=== PATIENT | male | born 1945 | race Caucasian/White ===

== ENCOUNTER 2017-10-30 17:11 | Inpatient (IN) | payer MEDICARE, BC ==
[~2017-10-30] VITALS: Ht 172.7 cm; Wt 98.0 kg
[~2017-10-30 17:11] MED LIST: ALBU18HF2 IH; ATOR10TA PO; BUDE10.22 INH; CLOP75TA35 PO; NITR0.4T51 SL
[2017-10-30 18:14] LABS: BASOPHILS # (AUTO) 0.1 X10'3 (0-0.2); BASOPHILS % (AUTO) 0.7 % (0-1); EOSINOPHILS # (AUTO) 0.3 X10'3 (0-0.9); EOSINOPHILS % (AUTO) 3.9 % (0-6); HEMATOCRIT 42.3 % (42.0-52.0); HEMOGLOBIN 14.5 g/dl (14.0-17.9); LYMPHOCYTES # (AUTO) 1.9 X10'3 (1.1-4.8); LYMPHOCYTES % (AUTO) 21.9 % (21-51); MEAN CORPUSCULAR HEMOGLOBIN 30.6 PG (27.0-31.0); MEAN CORPUSCULAR HGB CONC 34.3 % (33.0-36.5); MEAN CORPUSCULAR VOLUME 89.1 FL (78-98); MEAN PLATELET VOLUME 8.8 FL (7.4-10.4); MONOCYTES # (AUTO) 0.6 X10'3 (0-0.9); MONOCYTES % (AUTO) 7.1 % (2-12); NEUTROPHILS # (AUTO) 5.8 X10'3 (1.8-7.7); NEUTROPHILS % (AUTO) 66.4 % (42-75); PLATELET COUNT 238 X10'3 (140-440); RED BLOOD COUNT 4.74 X10'6 (4.70-6.10); WHITE BLOOD COUNT 8.7 X10'3 (4.5-11.0)
[2017-10-30 18:29] LABS: ALANINE AMINOTRANSFERASE 27 U/L (12-78); ALBUMIN 3.9 G/DL (3.4-5.0); ALBUMIN/GLOBULIN RATIO 1.3 (1.1-1.5); ALKALINE PHOSPHATASE 67 IU/L (46-116); ANION GAP 7 (8-16); ASPARTATE AMINO TRANSFERASE 14 U/L (10-37); BILIRUBIN,TOTAL 0.5 MG/DL (0.1-1.0); BLOOD UREA NITROGEN 17 MG/DL (7-18); BUN/CREATININE RATIO 15.5 (5.4-32.0); CALCIUM 8.7 MG/DL (8.5-10.1); CHLORIDE 105 MMOL/L (99-107); GLUCOSE 195 MG/DL (70-104); POTASSIUM 4.3 MMOL/L (3.5-5.1); SODIUM 139 MMOL/L (135-145); TOTAL CARBON DIOXIDE 26.9 MMOL/L (24-32); TOTAL PROTEIN 6.8 G/DL (6.4-8.2); eGFR 66 ML/MIN
[2017-10-30 21:18] LABS: UA COLLECTION TYPE VOIDED
[2017-10-30 21:19] LABS: CLARITY,URINE BLOODY (Clear); COLOR,URINE Red (Yellow)
[2017-10-30] MEDS ORDERED: LIDOcaine 2% 10ml TOPICAL JELLY (Urojet) MM ONE (21:50)
[2017-10-30 22:02] LABS: BACTERIA,URINE NONE SEEN /HPF (Neg); MUCUS STRANDS NONE SEEN /LPF (Neg); RBC,URINE TNTC /HPF (0-2); SQUAMOUS EPITHELIAL CELL,UR NONE SEEN /LPF (FEW); WBC,URINE 0-4 /HPF (0-4)
[2017-10-30] MEDS ORDERED: morphine 5 MG/ML injection IV ONE (22:15)
[2017-10-30] MEDS ORDERED: nitroGLYCERIN 0.4mg SUBLingual tab SL PRN (23:35)
[2017-10-30 23:48] LABS: TROPONIN I < 0.04 NG/ML (0.0-0.05)
[2017-10-30] MEDS ORDERED: normal saline 1000ML IV soln IVB ONE (23:50)
[2017-10-31] MEDS ORDERED: potassium Cl 40MEQ/NS 500ml 500 ML IV PRN ×2 (01:20)
[2017-10-31] MEDS ORDERED: albuterol 2.5 MG/3 ML nebule NEB PRN (01:20)
[2017-10-31] MEDS ORDERED: magnesium 4gm in 100ml NS 100 ML IV PRN (01:20)
[2017-10-31] MEDS ORDERED: HYDROmorphone 1 mg/ml syringe IV PRN ×2 (01:20)
[2017-10-31] MEDS ORDERED: acetaminophen 325mg tablet PO PRN (01:20)
[2017-10-31] MEDS ORDERED: ipratropium/albuterol 3ml nebule NEB PRN (01:20)
[2017-10-31] MEDS ORDERED: potassium Cl 20 mEq SR tablet PO PRN ×2 (01:20)
[2017-10-31] MEDS ORDERED: magnesium 2GM in 50ml NS 50 ML IV PRN (01:20)
[2017-10-31] MEDS ORDERED: magnesium Cl slow-release 64mg tablet PO PRN (01:20)
[2017-10-31] MEDS ORDERED: magnesium hydroxide 30ml (MOM) UD suspension PO PRN (01:20)
[2017-10-31] MEDS ORDERED: mag hydrox/Alum hydrox/simeth 30ml oral suspension PO PRN (01:20)
[2017-10-31] MEDS ORDERED: ondansetron/PF 4mg/2ml inj IV PRN (01:20)
[2017-10-31] MEDS: normal saline 1000ml 1,000 ML IV SCH ×3 (01:27→14:23)
[2017-10-31 04:10] VITALS: BP 120/77
[2017-10-31 08:00] VITALS: BP 117/69
[2017-10-31] MEDS: K and/or MAG REPLACEMENT MC SCH (08:00)
[2017-10-31] MEDS: atorvastatin 10mg tablet PO SCH (09:36)
[2017-10-31] MEDS: clopidogrel 75mg tablet PO SCH (09:36)
[2017-10-31 11:00] VITALS: BP 130/84
[2017-10-31 11:18] VITALS: BP 117/69
[2017-10-31 19:00] VITALS: BP 122/78
[2017-10-31 19:43] LABS: BASOPHILS % (AUTO) 0.4 % (0-1); EOSINOPHILS # (AUTO) 0.2 X10'3 (0-0.9); EOSINOPHILS % (AUTO) 3.1 % (0-6); HEMOGLOBIN 12.8 g/dl (14.0-17.9); LYMPHOCYTES # (AUTO) 1.2 X10'3 (1.1-4.8); LYMPHOCYTES % (AUTO) 15.5 % (21-51); MEAN CORPUSCULAR HEMOGLOBIN 30.9 PG (27.0-31.0); MEAN CORPUSCULAR HGB CONC 34.6 % (33.0-36.5); MEAN CORPUSCULAR VOLUME 89.3 FL (78-98); MEAN PLATELET VOLUME 8.8 FL (7.4-10.4); MONOCYTES # (AUTO) 0.7 X10'3 (0-0.9); MONOCYTES % (AUTO) 8.3 % (2-12); NEUTROPHILS # (AUTO) 5.8 X10'3 (1.8-7.7); NEUTROPHILS % (AUTO) 72.7 % (42-75); PLATELET COUNT 177 X10'3 (140-440); RED BLOOD COUNT 4.14 X10'6 (4.70-6.10); WHITE BLOOD COUNT 7.9 X10'3 (4.5-11.0)
[2017-10-31 19:57] LABS: ALBUMIN 3.4 G/DL (3.4-5.0); ANION GAP 6 (8-16); BLOOD UREA NITROGEN 12 MG/DL (7-18); CALCIUM 8.6 MG/DL (8.5-10.1); CHLORIDE 106 MMOL/L (99-107); GLUCOSE 109 MG/DL (70-104); POTASSIUM 3.7 MMOL/L (3.5-5.1); SODIUM 140 MMOL/L (135-145); TOTAL CARBON DIOXIDE 27.6 MMOL/L (24-32); eGFR > 90 ML/MIN
[2017-10-31] MEDS: LORazepam 1 MG tablet PO PRN (21:53)
[2017-10-31] MEDS: pantoprazole 40 MG vial IV SCH (23:30)
[2017-10-31] MEDS ORDERED: insulin Lispro (HumaLOG) vial - multi-dose SQ SCH (23:45)
[2017-10-31] MEDS ORDERED: dextrose ORAL solution 15 GM/59 ML bottle PO PRN ×2 (23:45)
[2017-10-31] MEDS ORDERED: insulin regular, human vial - multi-dose SQ SCH (23:45)
[2017-10-31] MEDS ORDERED: dextrose 50%-water 50ml dispensing syringe IV PRN ×2 (23:45)
[2017-10-31] MEDS ORDERED: glucagon, human recombinant 1mg kit SUBCUT PRN (23:45)
[2017-10-31] MEDS ORDERED: MESSAGE TO PHARMACY PO ONE (23:45)
[2017-11-01] VITALS: BP 119/76
[2017-11-01] MEDS: temazepam 15mg capsule PO PRN ×2 (00:54→21:52)
[2017-11-01] MEDS: normal saline 1000ml 1,000 ML IV SCH (01:03)
[2017-11-01 05:36] LABS: ALBUMIN 3.1 G/DL (3.4-5.0); ANION GAP 5 (8-16); BASOPHILS % (AUTO) 0.5 % (0-1); BLOOD UREA NITROGEN 12 MG/DL (7-18); BUN/CREATININE RATIO 13.3 (5.4-32.0); CALCIUM 8.3 MG/DL (8.5-10.1); CHLORIDE 108 MMOL/L (99-107); EOSINOPHILS # (AUTO) 0.3 X10'3 (0-0.9); EOSINOPHILS % (AUTO) 4.3 % (0-6); GLUCOSE 133 MG/DL (70-104); HEMATOCRIT 34.4 % (42.0-52.0); HEMOGLOBIN 11.9 g/dl (14.0-17.9); LYMPHOCYTES # (AUTO) 1.6 X10'3 (1.1-4.8); LYMPHOCYTES % (AUTO) 21.8 % (21-51); MAGNESIUM 1.8 MG/DL (1.5-2.4); MEAN CORPUSCULAR HGB CONC 34.7 % (33.0-36.5); MEAN CORPUSCULAR VOLUME 89.2 FL (78-98); MEAN PLATELET VOLUME 8.8 FL (7.4-10.4); MONOCYTES # (AUTO) 0.9 X10'3 (0-0.9); NEUTROPHILS # (AUTO) 4.4 X10'3 (1.8-7.7); NEUTROPHILS % (AUTO) 61.4 % (42-75); PLATELET COUNT 165 X10'3 (140-440); POTASSIUM 3.7 MMOL/L (3.5-5.1); RED BLOOD COUNT 3.85 X10'6 (4.70-6.10); RED CELL DISTRIBUTION WIDTH 12.9 % (11.5-14.5); SODIUM 141 MMOL/L (135-145); WHITE BLOOD COUNT 7.2 X10'3 (4.5-11.0); eGFR 83 ML/MIN
[2017-11-01 07:33] VITALS: BP 122/71
[2017-11-01] MEDS: K and/or MAG REPLACEMENT MC SCH (07:47)
[2017-11-01] MEDS: clopidogrel 75mg tablet PO SCH (08:18)
[2017-11-01] MEDS: atorvastatin 10mg tablet PO SCH (08:18)
[2017-11-01] MEDS: pantoprazole 40 MG vial IV SCH (08:31)
[2017-11-01 10:45] VITALS: BP 124/68
[2017-11-01] MEDS: LORazepam 1 MG tablet PO PRN (10:51)
[2017-11-01] MEDS ORDERED: morphine 2 MG/ML inj. syringe IV PRN (11:45)
[2017-11-01] MEDS: morphine 2 MG/ML inj. syringe IV PRN ×2 (12:04→20:33)
[2017-11-01] MEDS ORDERED: morphine 2 MG/ML inj. syringe IV ONE (12:25)
[2017-11-01 18:30] VITALS: BP 128/88
[2017-11-01] MEDS: insulin glargine (Lantus) pen - multi-dose SQ SCH (21:00)
[2017-11-02] VITALS: BP 124/72
[2017-11-02 06:07] LABS: BASOPHILS % (AUTO) 0.5 % (0-1); EOSINOPHILS # (AUTO) 0.5 X10'3 (0-0.9); EOSINOPHILS % (AUTO) 6.8 % (0-6); HEMATOCRIT 34.2 % (42.0-52.0); HEMOGLOBIN 11.9 g/dl (14.0-17.9); LYMPHOCYTES # (AUTO) 1.6 X10'3 (1.1-4.8); LYMPHOCYTES % (AUTO) 21.1 % (21-51); MEAN CORPUSCULAR HGB CONC 34.8 % (33.0-36.5); MEAN PLATELET VOLUME 8.8 FL (7.4-10.4); MONOCYTES # (AUTO) 0.8 X10'3 (0-0.9); MONOCYTES % (AUTO) 10.5 % (2-12); NEUTROPHILS # (AUTO) 4.6 X10'3 (1.8-7.7); NEUTROPHILS % (AUTO) 61.1 % (42-75); PLATELET COUNT 177 X10'3 (140-440); RED BLOOD COUNT 3.84 X10'6 (4.70-6.10); RED CELL DISTRIBUTION WIDTH 12.8 % (11.5-14.5); WHITE BLOOD COUNT 7.5 X10'3 (4.5-11.0)
[2017-11-02 06:29] LABS: ANION GAP 7 (8-16); BLOOD UREA NITROGEN 12 MG/DL (7-18); CALCIUM 8.5 MG/DL (8.5-10.1); CHLORIDE 107 MMOL/L (99-107); GLUCOSE 170 MG/DL (70-104); MAGNESIUM 1.9 MG/DL (1.5-2.4); POTASSIUM 3.8 MMOL/L (3.5-5.1); SODIUM 142 MMOL/L (135-145); TOTAL CARBON DIOXIDE 28.3 MMOL/L (24-32); eGFR > 90 ML/MIN
[2017-11-02 06:55] VITALS: BP 146/69
[2017-11-02] MEDS: K and/or MAG REPLACEMENT MC SCH (07:51)
[2017-11-02] MEDS: pantoprazole 40mg Tablet.DR PO SCH (09:05)
[2017-11-02] MEDS: atorvastatin 10mg tablet PO SCH (09:05)
[2017-11-02 10:45] VITALS: BP 103/69
[2017-11-02] MEDS: clopidogrel 75mg tablet PO SCH (10:56)
[2017-11-02 18:30] VITALS: BP 129/73
[2017-11-02] MEDS: insulin glargine (Lantus) pen - multi-dose SQ SCH (21:00)
[2017-11-02] MEDS: temazepam 15mg capsule PO PRN (21:25)
[2017-11-03] VITALS: BP 130/78
[2017-11-03 05:31] LABS: ALBUMIN 3.1 G/DL (3.4-5.0); ANION GAP 7 (8-16); BLOOD UREA NITROGEN 14 MG/DL (7-18); BUN/CREATININE RATIO 17.5 (5.4-32.0); CALCIUM 8.8 MG/DL (8.5-10.1); CHLORIDE 107 MMOL/L (99-107); GLUCOSE 142 MG/DL (70-104); MAGNESIUM 1.8 MG/DL (1.5-2.4); POTASSIUM 3.8 MMOL/L (3.5-5.1); SODIUM 142 MMOL/L (135-145); TOTAL CARBON DIOXIDE 28.1 MMOL/L (24-32); eGFR > 90 ML/MIN
[2017-11-03 05:33] LABS: BASOPHILS % (AUTO) 0.3 % (0-1); EOSINOPHILS # (AUTO) 0.6 X10'3 (0-0.9); EOSINOPHILS % (AUTO) 6.2 % (0-6); HEMATOCRIT 33.7 % (42.0-52.0); HEMOGLOBIN 11.9 g/dl (14.0-17.9); LYMPHOCYTES # (AUTO) 1.9 X10'3 (1.1-4.8); MEAN CORPUSCULAR HEMOGLOBIN 31.3 PG (27.0-31.0); MEAN CORPUSCULAR HGB CONC 35.2 % (33.0-36.5); MEAN CORPUSCULAR VOLUME 88.7 FL (78-98); MEAN PLATELET VOLUME 8.8 FL (7.4-10.4); MONOCYTES # (AUTO) 0.8 X10'3 (0-0.9); MONOCYTES % (AUTO) 9.2 % (2-12); NEUTROPHILS # (AUTO) 5.7 X10'3 (1.8-7.7); NEUTROPHILS % (AUTO) 63.3 % (42-75); PLATELET COUNT 199 X10'3 (140-440); RED CELL DISTRIBUTION WIDTH 13.1 % (11.5-14.5); WHITE BLOOD COUNT 8.9 X10'3 (4.5-11.0)
[2017-11-03 07:26] VITALS: BP 98/69
[2017-11-03] MEDS: K and/or MAG REPLACEMENT MC SCH (07:44)
[2017-11-03] MEDS: atorvastatin 10mg tablet PO SCH (08:50)
[2017-11-03] MEDS: clopidogrel 75mg tablet PO SCH (08:50)
[2017-11-03] MEDS: LORazepam 1 MG tablet PO PRN (08:50)
[2017-11-03] MEDS: pantoprazole 40mg Tablet.DR PO SCH (08:51)
[2017-11-03 11:47] VITALS: BP 112/63
[2017-11-03] MEDS ORDERED: METF500T7 PO (12:24)
[2017-11-04 05:31] LABS: % FREE PSA 26.7 % (.); PSA, FREE 0.16 ng/mL
== END 2017-11-03 14:10 | disposition home or self-care (01) | DRG 696 ==
LOC: ER 17:12 → ED HOLD 10-31 01:17 → SUR 3N 10-31 04:05
PROVIDERS: ADMIT Internal Medicine; ATTEND Family Medicine
PROC: 0TCB7ZZ Extirpation of Matter from Bladder, Via Natural or Artificial Opening (ICD-10-PCS; principal; 2017-10-31)
PROC: 3E1K78Z Irrigation of Genitourinary Tract using Irrigating Substance, Via Natural or Artificial Opening (ICD-10-PCS; 2017-10-31)
DX: R31.0 Gross hematuria (principal); E11.65 Type 2 diabetes mellitus with hyperglycemia; C61 Malignant neoplasm of prostate; J43.9 Emphysema, unspecified; I25.10 Atherosclerotic heart disease of native coronary artery without angina pectoris; I10 Essential (primary) hypertension; K57.90 Diverticulosis of intestine, part unspecified, without perforation or abscess without bleeding; E78.5 Hyperlipidemia, unspecified; H40.9 Unspecified glaucoma; N40.1 Benign prostatic hyperplasia with lower urinary tract symptoms; R33.8 Other retention of urine; Z60.2 Problems related to living alone; I25.2 Old myocardial infarction; Z79.84 Long term (current) use of oral hypoglycemic drugs; Z79.02 Long term (current) use of antithrombotics/antiplatelets; Z87.891 Personal history of nicotine dependence; Z95.5 Presence of coronary angioplasty implant and graft
CPT/HCPCS: 36415; 80048; 80053; 81001; 82948; 83036; 83735; 84153; 84154; 84484; 85025; 85610; 87070; 93005; 94760; 96360; 97110; 97116; 97161; 99285; A4315; A6257; C1758; C9113; J1815; J2270; J7030

== ENCOUNTER 2018-01-05 09:04 | Outpatient (CLI) | payer MEDICARE, BC ==
[2018-01-05] VITALS (17 sets, daily range): BP systolic 95–141; BP diastolic 66–83
== END 2018-01-05 23:59 | disposition home or self-care (01) ==
LOC: CARD DIAG 09:04
PROVIDERS: ATTEND Internal Medicine Interventional Cardiology
DX: R42 Dizziness and giddiness (principal); I95.9 Hypotension, unspecified
CPT/HCPCS: 93660

== ENCOUNTER 2018-09-21 09:27 | Emergency (ER) | payer MEDICARE, BC ==
[~2018-09-21] VITALS: Ht 172.7 cm; Wt 95.5 kg
[2018-09-21] MEDS ORDERED: ipratropium/albuterol 3ml nebule NEB ONE (10:00)
[2018-09-21 10:05] LABS: BASOPHILS % (AUTO) 0.4 % (0-1); EOSINOPHILS # (AUTO) 0.1 X10'3 (0-0.9); EOSINOPHILS % (AUTO) 1.4 % (0-6); HEMATOCRIT 45.3 % (42.0-52.0); HEMOGLOBIN 15.1 g/dl (14.0-17.9); LYMPHOCYTES # (AUTO) 1.1 X10'3 (1.1-4.8); LYMPHOCYTES % (AUTO) 13.5 % (21-51); MEAN CORPUSCULAR HEMOGLOBIN 29.3 PG (27.0-31.0); MEAN CORPUSCULAR HGB CONC 33.4 % (33.0-36.5); MEAN CORPUSCULAR VOLUME 87.6 FL (78-98); MEAN PLATELET VOLUME 8.9 FL (7.4-10.4); MONOCYTES # (AUTO) 0.9 X10'3 (0-0.9); MONOCYTES % (AUTO) 11.3 % (2-12); NEUTROPHILS # (AUTO) 6.2 X10'3 (1.8-7.7); NEUTROPHILS % (AUTO) 73.4 % (42-75); PLATELET COUNT 245 X10'3 (140-440); RED BLOOD COUNT 5.17 X10'6 (4.70-6.10); RED CELL DISTRIBUTION WIDTH 15.1 % (11.5-14.5); WHITE BLOOD COUNT 8.4 X10'3 (4.5-11.0)
[2018-09-21 10:20] LABS: ALANINE AMINOTRANSFERASE 36 U/L (12-78); ALBUMIN 3.5 G/DL (3.4-5.0); ALBUMIN/GLOBULIN RATIO 0.8 (1.1-1.5); ALKALINE PHOSPHATASE 100 IU/L (46-116); ANION GAP 14 (8-16); ASPARTATE AMINO TRANSFERASE 28 U/L (10-37); BILIRUBIN,TOTAL 0.5 MG/DL (0.1-1.0); BLOOD UREA NITROGEN 19 MG/DL (7-18); BUN/CREATININE RATIO 17.4 (5.4-32.0); CALCIUM 9.2 MG/DL (8.5-10.1); CHLORIDE 100 MMOL/L (99-107); CREATININE 1.09 MG/DL (0.60-1.10); GLUCOSE 204 MG/DL (70-104); POTASSIUM 3.6 MMOL/L (3.5-5.1); SODIUM 137 MMOL/L (135-145); TOTAL CARBON DIOXIDE 23.1 MMOL/L (24-32); TOTAL PROTEIN 7.8 G/DL (6.4-8.2); eGFR 67 ML/MIN
[2018-09-21 10:22] LABS: PARTIAL THROMBOPLASTIN TIME 27 SECONDS (22-32)
[2018-09-21] MEDS ORDERED: DOXY100C43 PO (11:19)
[2018-09-21] MEDS ORDERED: METH4TAB81 PO (11:19)
[2018-09-21] MEDS ORDERED: methylPREDNISolone sod succ 125mg/2ml vial IV ONE (11:20)
[2018-09-21 11:41] VITALS: BP 147/83
== END 2018-09-21 11:55 | disposition home or self-care (01) ==
LOC: ER 09:27
DX: J44.1 Chronic obstructive pulmonary disease with (acute) exacerbation (principal); Z98.890 Other specified postprocedural states; Z79.899 Other long term (current) drug therapy
CPT/HCPCS: 36415; 71045; 80053; 84484; 85025; 85610; 85730; 93005; 94640; 94760; 96374; 99284; J2930

== ENCOUNTER 2018-09-29 11:55 | Inpatient (IN) | payer MEDICARE, BC | END 2018-10-13 17:31 | disposition home or self-care (01) | LOC: ER 11:55 → ED HOLD 13:36 → SUR 3N 17:45 | DX: A41.9 Sepsis, unspecified organism (principal); J18.9 Pneumonia, unspecified organism; J96.00 Acute respiratory failure, unspecified whether with hypoxia or hypercapnia; J44.0 Chronic obstructive pulmonary disease with (acute) lower respiratory infection; J44.1 Chronic obstructive pulmonary disease with (acute) exacerbation ==

== ENCOUNTER 2019-05-09 00:44 | Outpatient (CLI) | payer MEDICARE, BC ==
[~2019-05-09 00:44] MED LIST changes: +BICA50TA48 PO; -BUDE10.22 INH; +COMP1EAC88; +IPRA3AMP9 NEB; +LACT1CAP26 PO; +PANT40TA4 PO; +PRED20TA PO; +TAMS0.4C32 PO
== END 2019-05-09 23:59 | disposition home or self-care (01) ==
LOC: RT 00:44
PROVIDERS: ATTEND Internal Medicine Critical Care Medicine
DX: J43.9 Emphysema, unspecified (principal); J45.998 Other asthma; I25.10 Atherosclerotic heart disease of native coronary artery without angina pectoris; I50.9 Heart failure, unspecified; F17.200 Nicotine dependence, unspecified, uncomplicated; Z85.46 Personal history of malignant neoplasm of prostate; Z79.82 Long term (current) use of aspirin; Z79.899 Other long term (current) drug therapy
CPT/HCPCS: 94618

== ENCOUNTER 2019-07-19 19:35 | Observation (INO) | payer MEDICARE, BC ==
[~2019-07-19] VITALS: Ht 175.3 cm; Wt 97.0 kg
[2019-07-19] MEDS ORDERED: normal saline 1000ML IV soln IVB ONE (20:10)
[2019-07-19] MEDS: morphine 4 MG/ML inj SYRINge IV ONE ×2 (20:18→20:22)
--- NOTE | 2019-07-19 20:22 | NUR ---
PT STATED THAT IF HE IS NOT GETTING CATHETER HE DOES NOT NEED IV MORPHINE HE IS NOT IN ANY PAIN.
[2019-07-19 20:36] LABS: BASOPHILS # (AUTO) 0.1 X10'3 (0-0.2); BASOPHILS % (AUTO) 0.6 % (0-1); EOSINOPHILS # (AUTO) 0.2 X10'3 (0-0.9); EOSINOPHILS % (AUTO) 2.9 % (0-6); HEMATOCRIT 39.4 % (42.0-52.0); HEMOGLOBIN 13.6 g/dl (14.0-17.9); LYMPHOCYTES # (AUTO) 2.3 X10'3 (1.1-4.8); LYMPHOCYTES % (AUTO) 27.2 % (21-51); MEAN CORPUSCULAR HEMOGLOBIN 30.6 PG (27.0-31.0); MEAN CORPUSCULAR HGB CONC 34.5 g/dL (33.0-36.5); MEAN CORPUSCULAR VOLUME 88.8 FL (78-98); MEAN PLATELET VOLUME 9.2 FL (7.4-10.4); MONOCYTES # (AUTO) 0.7 X10'3 (0-0.9); MONOCYTES % (AUTO) 8.5 % (2-12); NEUTROPHILS # (AUTO) 5.2 X10'3 (1.8-7.7); NEUTROPHILS % (AUTO) 60.8 % (42-75); PLATELET COUNT 210 X10'3 (140-440); RED BLOOD COUNT 4.44 X10'6 (4.70-6.10); WHITE BLOOD COUNT 8.6 X10'3 (4.5-11.0)
[2019-07-19 20:45] LABS: ALANINE AMINOTRANSFERASE 22 U/L (12-78); ALBUMIN 3.6 G/DL (3.4-5.0); ALBUMIN/GLOBULIN RATIO 1.1 (1.1-1.5); ALKALINE PHOSPHATASE 76 IU/L (46-116); ANION GAP 10 (8-16); ASPARTATE AMINO TRANSFERASE 8 U/L (10-37); BILIRUBIN,TOTAL 0.3 MG/DL (0.1-1.0); BLOOD UREA NITROGEN 15 MG/DL (7-18); CALCIUM 8.8 MG/DL (8.5-10.1); CHLORIDE 106 MMOL/L (99-107); POTASSIUM 3.5 MMOL/L (3.5-5.1); SODIUM 142 MMOL/L (135-145); eGFR 74 ML/MIN
[2019-07-19 20:51] LABS: GLUCOSE 140 MG/DL (70-104)
[2019-07-19] MEDS ORDERED: LIDOcaine 2% 10ml TOPICAL JELLY (Urojet) MM ONE (21:05)
[2019-07-19] MEDS ORDERED: morphine 4 MG/ML inj SYRINge IV ONE (21:45)
[2019-07-19] MEDS ORDERED: TRAM50TA2 PO (22:01)
[2019-07-19 22:18] LABS: CLARITY,URINE CLOUDY (Clear); COLOR,URINE BROWN (Yellow); GLUCOSE, URINE NEGATIVE (Neg); KETONES,URINE NEGATIVE (Neg); LEUKOCYTE ESTERASE ,URINE NEGATIVE (Neg); NITRITES, URINE NEGATIVE (Neg); OCCULT BLOOD,URINE LARGE (Neg); PROTEIN,URINE TRACE mg/dl (Neg); UROBILINOGEN,URINE 0.2 E.U/dL (0.2-1.0)
[2019-07-19 22:26] LABS: UA COLLECTION TYPE NON-SPECIFIED
[2019-07-19 22:28] LABS: WBC,URINE 0-4 /HPF (0-4)
[2019-07-19 22:29] LABS: AMORPHOUS URATES 4+; BACTERIA,URINE FEW /HPF (Neg); SQUAMOUS EPITHELIAL CELL,UR FEW /LPF (FEW)
--- NOTE | 2019-07-19 22:40 | NUR ---
Deflated balloon to estes catheter due to no drainage and tried to adjust estes catheter. During adjustment, pt reported 6/10 pain at his lower chest and L and R upper abd. Notified JASPREET Hankins of pt's pain who assessed pt at bedside. New order to bladder scan the patient.
[2019-07-20] MEDS ORDERED: magnesium Cl slow-release 64mg tablet PO PRN (01:05)
[2019-07-20] MEDS ORDERED: potassium Cl 20 mEq SR tablet PO PRN ×2 (01:05)
[2019-07-20] MEDS ORDERED: mag hydrox/Alum hydrox/simeth 30ml oral suspension PO PRN (01:05)
[2019-07-20] MEDS ORDERED: acetaminophen 325mg tablet PO PRN (01:05)
[2019-07-20] MEDS ORDERED: potassium CL 10mEq/100ml bag 100 ML IV PRN ×2 (01:05)
[2019-07-20] MEDS ORDERED: magnesium 4gm in 100ml NS 100 ML IV PRN (01:05)
[2019-07-20] MEDS ORDERED: magnesium hydroxide 30ml (MOM) UD suspension PO PRN (01:05)
[2019-07-20] MEDS ORDERED: ondansetron/PF 4mg/2ml inj IV PRN (01:05)
[2019-07-20] MEDS ORDERED: morphine 2 MG/ML inj. syringe IV PRN ×2 (01:05)
[2019-07-20] MEDS ORDERED: magnesium 2GM in 50ml NS 50 ML IV PRN (01:05)
[2019-07-20] MEDS ORDERED: HYDROcodone/acetaminophen 5mg/325mg tablet PO PRN (01:05)
--- NOTE | 2019-07-20 01:30 | NUR ---
PATIENT HAVING PRESSURE IN BLADDER AGAIN, FLUSHED QUINONES WITH 10ML NS. SMALL CLOT PASSED AND QUINONES DRAINING FREELY AFTER FLUSH
[2019-07-20] MEDS ORDERED: morphine 4 MG/ML inj SYRINge IV ONE (02:40)
--- NOTE | 2019-07-20 03:31 | NUR ---
PATIENT STARTING TO FEEL PRESSURE REQUESTED TO HAVE CATHETER FLUSHED, FLUSHED CATHETER WITH 10ML NS. CATHETER DRAINING AT THIS TIME
[2019-07-20] MEDS ORDERED: ASPI81TA52 PO (03:50)
[2019-07-20] MEDS ORDERED: FURO-150 PO (03:50)
[2019-07-20] MEDS ORDERED: FLO0.4C PO (03:50)
[2019-07-20] MEDS ORDERED: ATOR80TA PO (03:50)
[2019-07-20] MEDS ORDERED: ALBU8.5H8 INH (03:50)
[2019-07-20] MEDS ORDERED: METF500T PO (03:50)
[2019-07-20] MEDS ORDERED: POTA10TA10 PO (03:50)
[2019-07-20 04:31] VITALS: BP 160/86
[2019-07-20] MEDS ORDERED: MESSAGE TO PHARMACY PO ONE (05:35)
[2019-07-20] MEDS ORDERED: dextrose 50%-water 50ml dispensing syringe IV PRN ×2 (05:35)
[2019-07-20] MEDS ORDERED: ipratropium/albuterol 3ml nebule NEB PRN (05:35)
[2019-07-20] MEDS ORDERED: glucagon, human recombinant 1mg kit SUBCUT PRN (05:35)
[2019-07-20] MEDS ORDERED: insulin Lispro (HumaLOG) vial - multi-dose SQ SCH (05:35)
[2019-07-20] MEDS ORDERED: dextrose ORAL solution 15 GM/59 ML bottle PO PRN ×2 (05:35)
[2019-07-20 06:36] VITALS: BP 155/78
[2019-07-20] MEDS ORDERED: potassium chloride 10mEq ER tablet PO SCH (08:00)
[2019-07-20] MEDS ORDERED: furosemide 20MG tablet PO SCH (08:00)
[2019-07-20] MEDS ORDERED: tamsulosin 0.4mg capsule PO SCH ×2 (08:00→21:00)
[2019-07-20] MEDS ORDERED: K and/or MAG REPLACEMENT MC SCH (08:00)
--- NOTE | 2019-07-20 08:10 | NUR ---
catheter bag was lilian, clearing in the tubing with clots present in bag Addendum: 07/20/19 at 0814 by Tenisha VENTURA Amended: Links added.
[2019-07-20] MEDS ORDERED: ipratropium/albuterol 3ml nebule NEB SCH (09:00)
[2019-07-20 10:00] VITALS: BP 131/70
[2019-07-20] MEDS ORDERED: FLU VACC QS2019-20 36MOS UP/PF 60 MCG/0.5 ML SYRINGE IMVAC ONE (10:00)
--- NOTE | 2019-07-20 11:21 | NUR ---
patient states numbness in lower extremities common for him Addendum: 07/20/19 at 1126 by Tenisha VENTURA Amended: Links added.
--- NOTE | 2019-07-20 11:22 | NUR ---
patient states numbness in lower extremities is normal for him Addendum: 07/20/19 at 1126 by Tenisha VENTURA Amended: Links added.
--- NOTE | 2019-07-20 11:30 | NUR ---
Student documentation: I have reviewed all interventions, assessments performed and documented by Tenisha Chilel. Student Medication Administration: For this medication-pass time frame, all medication were reviewed, dispensed, administered and documented per hospital policy by Tenisha Chilel.
[2019-07-20] MEDS ORDERED: PHEN-824 PO (15:15)
--- NOTE | 2019-07-20 17:58 | NUR ---
Patient discharged, IV taken out, F/C to the leg applied. Wheeled out to car by fertilizer mixer.
--- NOTE | 2019-07-20 17:59 | NUR ---
Student documentation and med pass: I have reviewed and agree with all interventions, assessments performed and documented by Na VERA .
[2019-07-20] MEDS ORDERED: atorvastatin 20mg tablet PO SCH (21:00)
[2019-07-20] MEDS ORDERED: insulin glargine (Lantus) pen - multi-dose SQ SCH (21:00)
== END 2019-07-20 17:35 | disposition home or self-care (01) ==
LOC: ER 19:35 → ED HOLD 07-20 01:39 → EDBEDREQ 07-20 03:02 → ORTHO 4S 07-20 03:30
PROVIDERS: ADMIT Hospitalist; ATTEND Family Medicine
DX: R33.9 Retention of urine, unspecified (principal); R31.0 Gross hematuria; N13.9 Obstructive and reflux uropathy, unspecified; J43.9 Emphysema, unspecified; Z23 Encounter for immunization; Z87.440 Personal history of urinary (tract) infections; Z85.46 Personal history of malignant neoplasm of prostate; Z90.79 Acquired absence of other genital organ(s); Z79.899 Other long term (current) drug therapy
CPT/HCPCS: 36415; 80053; 81001; 82948; 85025; 87081; 94640; 94760; 96374; 99284; G0008; G0378; J2270; Q2037; J1815

== ENCOUNTER 2019-11-10 22:25 | Emergency (ER) | payer MEDICARE, BC ==
[~2019-11-10] VITALS: Ht 172.7 cm; Wt 100.0 kg
[~2019-11-10 22:25] MED LIST changes: -ATOR10TA PO; +ATOR80TA PO; +FURO-150 PO; +METF500T PO; +PHEN-824 PO; +POTA10TA10 PO; -PRED20TA PO
[2019-11-10 22:26] VITALS: BP 177/108
[2019-11-10] MEDS ORDERED: LIDOcaine 2% 10ml TOPICAL JELLY (Urojet) MM ONE (22:55)
[2019-11-10] MEDS ORDERED: AMLO5TAB4 PO (23:21)
--- NOTE | 2019-11-11 00:14 | NUR ---
PATIENT WAS ABLE TO VOID 220CC OF PURDY DARK RED URINE
[2019-11-11 00:35] LABS: UA COLLECTION TYPE CLN CATCH MIDSTREAM
[2019-11-11 00:36] LABS: CLARITY,URINE CLOUDY (Clear); COLOR,URINE RED (Yellow)
[2019-11-11 00:51] LABS: AMORPHOUS PHOSPHATES 1+; BACTERIA,URINE NONE SEEN /HPF (Neg); RBC,URINE TNTC /HPF (0-2); SQUAMOUS EPITHELIAL CELL,UR FEW /LPF (FEW)
== END 2019-11-11 01:13 | disposition home or self-care (01) ==
LOC: ER 22:25
DX: R31.9 Hematuria, unspecified (principal); J43.9 Emphysema, unspecified; Z85.46 Personal history of malignant neoplasm of prostate; Z98.890 Other specified postprocedural states; Z79.899 Other long term (current) drug therapy
CPT/HCPCS: 81001; 87088; 99283

== ENCOUNTER 2022-04-19 02:48 | Inpatient (IN) | payer MEDICARE, BC ==
[2022-04-19] VITALS (8 sets, daily range): BP systolic 97–141; BP diastolic 56–85
[~2022-04-19] VITALS: Ht 172.7 cm; Wt 97.7 kg
[~2022-04-19 02:48] MED LIST changes: +AMLO5TAB4 PO; +CLOP75TA34 PO; -CLOP75TA35 PO; -PANT40TA4 PO; +PANT40TA54 PO; +POTA-188 PO; -POTA10TA10 PO
[2022-04-19 03:49] LABS: ALANINE AMINOTRANSFERASE 20 U/L (12-78); ALBUMIN 3.5 G/DL (3.4-5.0); ALBUMIN/GLOBULIN RATIO 1.1 (1.1-1.5); ALKALINE PHOSPHATASE 95 IU/L (46-116); ANION GAP 10 (8-16); ASPARTATE AMINO TRANSFERASE 12 U/L (10-37); BILIRUBIN,TOTAL 0.5 MG/DL (0.1-1.0); BLOOD UREA NITROGEN 16 MG/DL (7-18); BUN/CREATININE RATIO 18.6 (5.4-32.0); CALCIUM 8.8 MG/DL (8.5-10.1); CHLORIDE 107 MMOL/L (99-107); CREATININE 0.86 MG/DL (0.60-1.10); GLUCOSE 158 MG/DL (70-104); POTASSIUM 4.3 MMOL/L (3.5-5.1); SODIUM 140 MMOL/L (135-145); TOTAL CARBON DIOXIDE 23.2 MMOL/L (24-32); TOTAL PROTEIN 6.7 G/DL (6.4-8.2); eGFR 87 ML/MIN
[2022-04-19 03:50] LABS: BASOPHILS # (AUTO) 0.1 X10'3 (0-0.2); EOSINOPHILS # (AUTO) 0.3 X10'3 (0-0.9); EOSINOPHILS % (AUTO) 3.9 % (0-6); HEMATOCRIT 43.7 % (42.0-52.0); HEMOGLOBIN 14.7 g/dl (14.0-17.9); LYMPHOCYTES # (AUTO) 2.5 X10'3 (1.1-4.8); LYMPHOCYTES % (AUTO) 29.9 % (21-51); MEAN CORPUSCULAR HEMOGLOBIN 31.3 PG (27.0-31.0); MEAN CORPUSCULAR HGB CONC 33.6 g/dL (33.0-36.5); MEAN CORPUSCULAR VOLUME 93.3 FL (78-98); MEAN PLATELET VOLUME 8.3 FL (7.4-10.4); MONOCYTES # (AUTO) 0.8 X10'3 (0-0.9); MONOCYTES % (AUTO) 9.3 % (2-12); NEUTROPHILS # (AUTO) 4.6 X10'3 (1.8-7.7); NEUTROPHILS % (AUTO) 55.9 % (42-75); PLATELET COUNT 273 X10'3 (140-440); RED BLOOD COUNT 4.68 X10'6 (4.70-6.10); RED CELL DISTRIBUTION WIDTH 13.7 % (11.5-14.5); WHITE BLOOD COUNT 8.3 X10'3 (4.5-11.0)
[2022-04-19] MEDS ORDERED: nitroGLYCERIN 0.4mg/hour patch TD ONE (07:05)
[2022-04-19] MEDS ORDERED: aspirin 81mg tab.chew PO ONE (07:05)
[2022-04-19] MEDS ORDERED: magnesium Cl slow-release 64mg tablet PO PRN (08:25)
[2022-04-19] MEDS ORDERED: potassium CL 10mEq/100ml bag 100 ML IV PRN (08:25)
[2022-04-19] MEDS ORDERED: magnesium 4gm in 100ml NS 100 ML IV PRN (08:25)
[2022-04-19] MEDS ORDERED: metoprolol tartrate 1mg/ml inj IV PRN (08:25)
[2022-04-19] MEDS ORDERED: POTASSIUM BICARB 20meq eff tab 20 MEQ TABLET.EFF PO PRN ×2 (08:25)
[2022-04-19] MEDS ORDERED: acetaminophen 325mg tablet PO PRN ×2 (08:25)
[2022-04-19] MEDS ORDERED: magnesium 2GM in 50ml NS 50 ML IV PRN (08:25)
[2022-04-19] MEDS ORDERED: nitroGLYCERIN 0.4mg SUBLingual tab SL PRN (08:25)
[2022-04-19] MEDS ORDERED: morphine 2 MG/ML inj. syringe IV PRN (08:25)
[2022-04-19] MEDS ORDERED: ondansetron/PF 4mg/2ml inj IV PRN (08:25)
[2022-04-19] MEDS ORDERED: HYDROcodone/acetaminophen 5mg/325mg tablet PO PRN (08:25)
[2022-04-19] MEDS ORDERED: aminophylline 500mg/20ml vial IV PRN (08:25)
[2022-04-19] MEDS ORDERED: regadenoson 0.4mg/5ml syringe IV PRN (08:25)
[2022-04-19] MEDS: normal saline 1000ml 1,000 ML IV SCH ×2 (09:05→21:32)
[2022-04-19 09:52] LABS: CHOL/HDL RATIO 3.3 (0.00-4.99); CHOLESTEROL 143 MG/DL (0-200); HDL CHOLESTEROL 43 MG/DL (35-60); LDL CHOLESTEROL 77 MG/DL (50-100); TRIGLYCERIDES 155 MG/DL (20-135)
--- NOTE | 2022-04-19 11:00 | NUR ---
Patient sent to [email or web address] via wheelchair
--- NOTE | 2022-04-19 14:30 | NUR ---
us tech at bedside.
[2022-04-19] MEDS ORDERED: K and/or MAG REPLACEMENT MC SCH (20:00)
[2022-04-19] MEDS ORDERED: temazepam 15mg capsule PO PRN (21:00)
[2022-04-19] MEDS: heparin, porcine 5000 units/ml vial SQ SCH (21:31)
--- NOTE | 2022-04-19 22:00 | NUR ---
pt arrived on the unit from ER. A&Ox4, vital signs T98.7, bp 141/85, hr 74, 96% o2 sats, 19 resp. skin intact. no complaints of pain or discomfort. pt voided x1. no acute distress noted. will continue to monitor pt.
[2022-04-20] MEDS: normal saline 1000ml 1,000 ML IV SCH (01:11)
[2022-04-20 02:00] VITALS: BP 150/81
[2022-04-20] MEDS ORDERED: Melatonin 3mg tablet PO SCH (02:35)
[2022-04-20 06:00] VITALS: BP 138/83
[2022-04-20 07:04] LABS: BASOPHILS # (AUTO) 0.1 X10'3 (0-0.2); BASOPHILS % (AUTO) 0.7 % (0-1); EOSINOPHILS # (AUTO) 0.2 X10'3 (0-0.9); EOSINOPHILS % (AUTO) 2.9 % (0-6); HEMATOCRIT 42.8 % (42.0-52.0); HEMOGLOBIN 14.5 g/dl (14.0-17.9); LYMPHOCYTES # (AUTO) 2.1 X10'3 (1.1-4.8); LYMPHOCYTES % (AUTO) 25.5 % (21-51); MEAN CORPUSCULAR HEMOGLOBIN 31.5 PG (27.0-31.0); MEAN CORPUSCULAR HGB CONC 33.9 g/dL (33.0-36.5); MEAN CORPUSCULAR VOLUME 93.2 FL (78-98); MEAN PLATELET VOLUME 8.4 FL (7.4-10.4); MONOCYTES # (AUTO) 0.8 X10'3 (0-0.9); MONOCYTES % (AUTO) 9.3 % (2-12); NEUTROPHILS % (AUTO) 61.6 % (42-75); PLATELET COUNT 264 X10'3 (140-440); RED CELL DISTRIBUTION WIDTH 13.5 % (11.5-14.5); WHITE BLOOD COUNT 8.1 X10'3 (4.5-11.0)
--- NOTE | 2022-04-20 07:13 | NUR ---
Did not receive full report as previous RN decided to leave work before releasing care. Call RN on phone, minimal report with incorrect information given because RN "threw her papers away".
[2022-04-20 07:29] LABS: ALANINE AMINOTRANSFERASE 18 U/L (12-78); ALBUMIN 3.6 G/DL (3.4-5.0); ALBUMIN/GLOBULIN RATIO 1.1 (1.1-1.5); ALKALINE PHOSPHATASE 102 IU/L (46-116); ANION GAP 10 (8-16); ASPARTATE AMINO TRANSFERASE 16 U/L (10-37); BILIRUBIN,TOTAL 0.5 MG/DL (0.1-1.0); BLOOD UREA NITROGEN 13 MG/DL (7-18); CHLORIDE 105 MMOL/L (99-107); CREATININE 0.81 MG/DL (0.60-1.10); GLUCOSE 162 MG/DL (70-104); POTASSIUM 4.1 MMOL/L (3.5-5.1); SODIUM 138 MMOL/L (135-145); TOTAL CARBON DIOXIDE 22.8 MMOL/L (24-32); TOTAL PROTEIN 6.9 G/DL (6.4-8.2); eGFR > 90 ML/MIN
[2022-04-20] MEDS: heparin, porcine 5000 units/ml vial SQ SCH (08:00)
--- NOTE | 2022-04-20 11:00 | NUR ---
DISCHARGE NOTE: Reviewed discharge paperwork with pt. He was very eager to leave and go home. Tele removed and returned. PIV DC'd, cannula intact, no s/sx bleeding noted, pressure bandage applied. Pt. had no new prescriptions and agrees to continues his home medications as usual. Unfortunately, DM protocol was not completed due to incomplete report given to RN, but written education provided to pt. and pt. does have a PCP to f/u with and agrees to. He also agrees to f/u with his program support clerk. Son here to drive pt home. Pt. ambulating w/o DME. Gathered his belongings, escorted downstairs in a w/c by staff member.
--- NOTE | 2022-04-30 13:31 | NUR ---
Case Management DC follow up: Spoke with Patient via telephone. S/P: Patient Reports: Denies acute/continuous CP, emergent SOB, resp distress, dyspnea, N/V, weakness, syncope episodes, orthostatic hypotension, MELVIN, blurry vision , s/s of stroke/BE-FAST, dysphagia, verbalizes he has had prostate cancer ;therefore,he occasionally notes blood in his urine.Denies: hematochezia, melena, unexplained bruising, bleeding, fever, chills.Verbalizes understanding of Rx: why prescribed; continues/resumes current Rx as ordered.Verbalizes understanding of s/s that warrant a -/ER visit for further evaluation. Verbalizes he has seen Dr. Hawkins for his follow up. Plans to call and schedule follow up appointment with his PCP . Verbalizes while his stay in hospital nurses and staff were great; However, the emergency department was horrific. Verbalized at first he received assistance when he pressed his light; however, there came a point when no one answered his light. Verbalizes he was unable to wait any longer for assistance; therefore, he remove all heart, oxygen, and B/P monitors, and went to restroom . Verbalized after he returned to his room he did not reconnect his monitors; verbalizing he was flat lined, not breathing, and had no B/P for about two hours before anyone checked on him.Needs met, questions/concerns addressed at DC.No further questions/concerns regarding recent hospital stay, and/or DC status at this time.
== END 2022-04-20 11:05 | disposition home or self-care (01) | DRG 313 ==
LOC: ER 02:49 → ED HOLD 08:30 → EDBEDREQ 21:29 → PCU 3S 22:39
PROVIDERS: ADMIT Internal Medicine; ATTEND Internal Medicine
PROC: 4A02XM4 Measurement of Cardiac Total Activity, External Approach (ICD-10-PCS; principal; 2022-04-19)
PROC: 3E033HZ Introduction of Radioactive Substance into Peripheral Vein, Percutaneous Approach (ICD-10-PCS; 2022-04-19)
DX: R07.89 Other chest pain (principal); C67.9 Malignant neoplasm of bladder, unspecified; I25.10 Atherosclerotic heart disease of native coronary artery without angina pectoris; Z60.2 Problems related to living alone; M54.6 Pain in thoracic spine; J43.9 Emphysema, unspecified; Z85.46 Personal history of malignant neoplasm of prostate; Z87.891 Personal history of nicotine dependence; Z95.5 Presence of coronary angioplasty implant and graft; Z87.440 Personal history of urinary (tract) infections
CPT/HCPCS: 36415; 71045; 78452; 80053; 80061; 83880; 84484; 85025; 93005; 93017; 93308; 97161; 97530; 99285; A9500; G0378; J1644; J2270; J2785; J7030

== ENCOUNTER 2022-04-21 00:50 | Emergency (ER) | payer MEDICARE, BC ==
[~2022-04-21] VITALS: Ht 172.7 cm; Wt 97.7 kg
[~2022-04-21 00:50] MED LIST changes: -LACT1CAP26 PO; -PHEN-824 PO
[2022-04-21 02:18] LABS: ALANINE AMINOTRANSFERASE 17 U/L (12-78); ALBUMIN 3.3 G/DL (3.4-5.0); ALBUMIN/GLOBULIN RATIO 1.1 (1.1-1.5); ALKALINE PHOSPHATASE 95 IU/L (46-116); ANION GAP 11 (8-16); ASPARTATE AMINO TRANSFERASE 16 U/L (10-37); BILIRUBIN,TOTAL 0.5 MG/DL (0.1-1.0); BLOOD UREA NITROGEN 12 MG/DL (7-18); BUN/CREATININE RATIO 17.1 (5.4-32.0); CALCIUM 8.2 MG/DL (8.5-10.1); CHLORIDE 108 MMOL/L (99-107); GLUCOSE 152 MG/DL (70-104); POTASSIUM 3.5 MMOL/L (3.5-5.1); SODIUM 140 MMOL/L (135-145); TOTAL CARBON DIOXIDE 21.3 MMOL/L (24-32); TOTAL PROTEIN 6.3 G/DL (6.4-8.2); eGFR > 90 ML/MIN
[2022-04-21 02:29] LABS: BASOPHILS # (AUTO) 0.1 X10'3 (0-0.2); BASOPHILS % (AUTO) 1.3 % (0-1); EOSINOPHILS # (AUTO) 0.2 X10'3 (0-0.9); EOSINOPHILS % (AUTO) 3.3 % (0-6); HEMOGLOBIN 14.3 g/dl (14.0-17.9); LYMPHOCYTES # (AUTO) 1.8 X10'3 (1.1-4.8); LYMPHOCYTES % (AUTO) 25.7 % (21-51); MEAN CORPUSCULAR HEMOGLOBIN 31.5 PG (27.0-31.0); MEAN CORPUSCULAR HGB CONC 34.1 g/dL (33.0-36.5); MEAN CORPUSCULAR VOLUME 92.5 FL (78-98); MEAN PLATELET VOLUME 7.7 FL (7.4-10.4); MONOCYTES # (AUTO) 0.6 X10'3 (0-0.9); MONOCYTES % (AUTO) 9.3 % (2-12); NEUTROPHILS # (AUTO) 4.1 X10'3 (1.8-7.7); NEUTROPHILS % (AUTO) 60.4 % (42-75); PLATELET COUNT 221 X10'3 (140-440); RED BLOOD COUNT 4.54 X10'6 (4.70-6.10); RED CELL DISTRIBUTION WIDTH 13.5 % (11.5-14.5); WHITE BLOOD COUNT 6.8 X10'3 (4.5-11.0)
[2022-04-21] MEDS ORDERED: iohexol 350MG/ML 100ml bottle IV ONE (05:39)
--- NOTE | 2022-04-21 06:37 | NUR ---
assumed patient care at this time. Patient is resting comfortably on stretcher.
[2022-04-21 10:00] VITALS: BP 128/73
== END 2022-04-21 12:02 | disposition home or self-care (01) ==
LOC: ER 00:51
DX: R07.9 Chest pain, unspecified (principal); R42 Dizziness and giddiness; J43.9 Emphysema, unspecified; Z79.84 Long term (current) use of oral hypoglycemic drugs; Z79.899 Other long term (current) drug therapy
CPT/HCPCS: 36415; 71045; 71275; 80053; 83880; 84484; 85025; 93005; 99285; J3490; Q9967

== ENCOUNTER 2022-05-13 11:58 | Day surgery (SDC) | payer MEDICARE, BC ==
[2022-05-08 09:37] LABS: BASOPHILS # (AUTO) 0.1 X10'3 (0-0.2); BASOPHILS % (AUTO) 0.8 % (0-1); EOSINOPHILS # (AUTO) 0.3 X10'3 (0-0.9); EOSINOPHILS % (AUTO) 4.1 % (0-6); HEMATOCRIT 44.9 % (42.0-52.0); HEMOGLOBIN 15.2 g/dl (14.0-17.9); LYMPHOCYTES % (AUTO) 24.7 % (21-51); MEAN CORPUSCULAR HEMOGLOBIN 31.4 PG (27.0-31.0); MEAN CORPUSCULAR HGB CONC 33.9 g/dL (33.0-36.5); MEAN CORPUSCULAR VOLUME 92.6 FL (78-98); MONOCYTES # (AUTO) 0.6 X10'3 (0-0.9); MONOCYTES % (AUTO) 7.2 % (2-12); NEUTROPHILS # (AUTO) 5.1 X10'3 (1.8-7.7); NEUTROPHILS % (AUTO) 63.2 % (42-75); PLATELET COUNT 287 X10'3 (140-440); RED BLOOD COUNT 4.85 X10'6 (4.70-6.10); RED CELL DISTRIBUTION WIDTH 13.7 % (11.5-14.5)
[2022-05-08 09:44] LABS: ALBUMIN 3.5 G/DL (3.4-5.0); ANION GAP 11 (8-16); BLOOD UREA NITROGEN 14 MG/DL (7-18); BUN/CREATININE RATIO 17.3 (5.4-32.0); CALCIUM 8.7 MG/DL (8.5-10.1); CHLORIDE 105 MMOL/L (99-107); CHOL/HDL RATIO 2.3 (0.00-4.99); CHOLESTEROL 122 MG/DL (0-200); CREATININE 0.81 MG/DL (0.60-1.10); GLUCOSE 133 MG/DL (70-104); HDL CHOLESTEROL 52 MG/DL (35-60); LDL CHOLESTEROL 53 MG/DL (50-100); POTASSIUM 4.4 MMOL/L (3.5-5.1); SODIUM 141 MMOL/L (135-145); TOTAL CARBON DIOXIDE 24.8 MMOL/L (24-32); TRIGLYCERIDES 159 MG/DL (20-135); eGFR > 90 ML/MIN
[2022-05-08 10:36] LABS: APTT 26 SECONDS (22-32)
[2022-05-13] VITALS (9 sets, daily range): BP systolic 122–155; BP diastolic 67–85
[~2022-05-13] VITALS: Ht 172.7 cm; Wt 96.5 kg
[2022-05-13] MEDS ORDERED: diphenhydrAMINE 25mg capsule PO PRN (12:30)
[2022-05-13] MEDS ORDERED: LORazepam 0.5 MG tablet PO PRN (12:30)
[2022-05-13] MEDS ORDERED: normal saline 1,000 ML IV SCH (12:30)
[2022-05-13] MEDS ORDERED: FLO0.4C PO (13:17)
[2022-05-13] MEDS ORDERED: ENZA40CA PO (13:17)
[2022-05-13] MEDS ORDERED: METF-438 PO (13:17)
[2022-05-13] MEDS ORDERED: FLUT1BLS4 INH (13:17)
[2022-05-13] MEDS ORDERED: LISI5TAB22 PO (13:17)
[2022-05-13] MEDS ORDERED: NITR0.4T51 SL (13:28)
[2022-05-13] MEDS ORDERED: ASCO-283 PO (13:28)
[2022-05-13] MEDS ORDERED: ASPI81TA52 PO (13:28)
[2022-05-13] MEDS ORDERED: DIPH-423 PO (13:28)
[2022-05-13] MEDS ORDERED: ALBU8.5H17 INH (13:28)
[2022-05-13] MEDS ORDERED: nitroGLYCERIN-Tridil 50MG/D5W 250 ML IV ONE (13:37)
[2022-05-13] MEDS ORDERED: iohexol 350MG/ML 100ml bottle IV ONE ×2 (13:38→15:35)
[2022-05-13] MEDS ORDERED: midazolam 1 mg/ML 2ml injection ONE (13:38)
[2022-05-13] MEDS ORDERED: fentaNYL/PF 50MCG/1 ML 2ML syringe ONE (13:38)
[2022-05-13] MEDS ORDERED: heparin 1,000unit/ml 10ml vial 10 ML ONE (13:38)
[2022-05-13] MEDS ORDERED: verapamil 2.5 mg/ml inj IV ONE (13:38)
[2022-05-13] MEDS ORDERED: LIDOcaine 1%/PF 5ML 10 MG/ML VIAL ONE (13:43)
[2022-05-13] MEDS ORDERED: clopidogrel 300mg tablet ONE (15:35)
[2022-05-13] MEDS ORDERED: aspirin 325mg tablet ONE (15:35)
[2022-05-13] MEDS ORDERED: HYDROcodone/acetaminophen 10/325mg tab PO PRN (17:00)
[2022-05-13] MEDS ORDERED: HYDROcodone/acetaminophen 5mg/325mg tablet PO PRN (17:00)
== END 2022-05-13 19:10 | disposition home or self-care (01) ==
LOC: SSTAY O 11:58
PROVIDERS: ATTEND Student in an Organized Health Care Education/Training Program
DX: I25.118 Atherosclerotic heart disease of native coronary artery with other forms of angina pectoris (principal); I10 Essential (primary) hypertension; E78.5 Hyperlipidemia, unspecified; Z79.01 Long term (current) use of anticoagulants; J44.9 Chronic obstructive pulmonary disease, unspecified; E11.9 Type 2 diabetes mellitus without complications; I25.2 Old myocardial infarction; Z79.899 Other long term (current) drug therapy; Z98.890 Other specified postprocedural states; Z95.5 Presence of coronary angioplasty implant and graft; Z85.46 Personal history of malignant neoplasm of prostate
CPT/HCPCS: 36415; 80048; 80061; 82948; 85025; 85610; 85730; 93005; 93458; 99152; 99153; C1725; C1751; C1769; C1874; C1894; C9600; J1644; J2250; J3010; J3490; J7030; Q0163; Q9967; A4620; A5120; A6402

== ENCOUNTER 2023-11-07 15:26 | Emergency (ER) | payer MEDICARE, BC ==
[~2023-11-07] VITALS: Ht 172.7 cm; Wt 86.0 kg
[~2023-11-07 15:26] MED LIST changes: -ALBU18HF2 IH; +ALBU8.5H17 INH; -AMLO5TAB4 PO; +ASCO-283 PO; +ASPI81TA52 PO; -BICA50TA48 PO; -CLOP75TA34 PO; -COMP1EAC88; +DIPH-423 PO; +ENZA40CA PO; +FLO0.4C PO; +FLUT1BLS4 INH; -FURO-150 PO; -IPRA3AMP9 NEB; +LISI5TAB22 PO; +METF-438 PO; -METF500T PO; -PANT40TA54 PO; -POTA-188 PO; -TAMS0.4C32 PO
[2023-11-07 15:41] VITALS: BP 125/81; PULSE 68; RESP 18; O2SAT 97
== END 2023-11-07 18:33 | disposition home or self-care (01) ==
LOC: ER 15:27
DX: S83.92XA Sprain of unspecified site of left knee, initial encounter (principal); M25.572 Pain in left ankle and joints of left foot; M79.672 Pain in left foot; J44.9 Chronic obstructive pulmonary disease, unspecified; Z79.82 Long term (current) use of aspirin; Z79.899 Other long term (current) drug therapy; W19.XXXA Unspecified fall, initial encounter; Y93.89 Activity, other specified; Y92.89 Other specified places as the place of occurrence of the external cause; Y99.8 Other external cause status
CPT/HCPCS: 73564; 73610; 73630; 99284; L4360; A6449